=== PATIENT | male | born 1980 | race Caucasian/White ===

== ENCOUNTER 2019-06-11 10:24 | Emergency (ER) | payer SELFPAY ==
[2019-06-11 10:33] VITALS: BP 152/90; PULSE 98; RESP 20; TEMP 36.8; O2SAT 100
--- NOTE | 2019-06-11 10:41 | ED.NAVMDI ---
HPI - Nausea/Vomiting/Diarrhea General Chief complaint: Nausea/Vomiting/Diarrhea Stated complaint: Nausea, Vomiting, Body Aches Time Seen by Provider: 06/11/19 10:29 Source: patient Mode of arrival: ambulatory Limitations: no limitations and clinical condition History of Present Illness HPI Narrative: Patient is a 39-year-old male who presents with nausea, generalized body aches, lethargy and weakness x2 days. Patient has a past history of leukemia and is immunocompromised. Patient has not received IgG injection in 3 months due to insurance. Patient denies cough, sore throat or shortness of breath. MD elicited complaint: other (Generalized weakness and body aches) Related Data Home Medications Medication Instructions Recorded Confirmed lisinopril 2.5 mg PO DAILY 06/11/19 06/11/19 ropinirole 1 mg PO DAILY 06/11/19 06/11/19 Allergies Allergy/AdvReac Type Severity Reaction Status Date / Time No Known Allergies Allergy Verified 06/11/19 10:37 Review of Systems Review of Systems: Narrative: CONSTITUTIONAL: Denies fever, reports chills, body aches, weakness and lethargy x2 days EYES: Denies visual changes, redness, or discharge. ENT: Denies rhinorrhea, congestion, or otalgia. Reports mild sore throat CARDIOVASCULAR: Denies chest pain, palpitations, or edema. RESPIRATORY: Denies cough or dyspnea. GASTROINTESTINAL: Denies abdominal pain, vomiting, or diarrhea. Reports nausea GENITOURINARY: Denies dysuria or hematuria. SKIN: Denies rash or itching. MUSCULOSKELETAL: Denies back pain, joint pain, or myalgia. NEUROLOGIC: Denies headache, numbness, dizziness, or weakness. PSYCHIATRIC: Denies anxiety or depression. PMFSH Past Medical History Medical History (Updated 06/11/19 @ 11:42 by HERMES Galaviz) Immunocompromised patient Leukemia Migraines Social History Social History (Updated 06/11/19 @ 11:22 by HERMES Galaviz) Smoking status: Never smoker Alcohol intake: current Alcohol use details: Socially Substance use: never Living arrangements: with family Occupation/Education: occupation Gender identity (if verbalized by the patient): Male Exam Narrative: Exam Narrative: GENERAL: Well-appearing, well-nourished, and in no acute distress. HEAD: Normocephalic, atraumatic. EYES: EOMI. No redness or drainage. Conjunctiva are normal. ENT: Mucous membranes pink and moist. Nares clear. No rhinorrhea. TMs normal bilaterally. Throat normal. Uvula midline. NECK: AROM. Supple. No lymphadenopathy. CHEST: No respiratory distress. Clear to auscultation. HEART: Regular rate and rhythm. No murmur appreciated. Normal peripheral pulses. GI: Soft, nontender without rebound, or guarding. No distention. Bowel sounds normal in all quadrants. MUSCULOSKELETAL: No bony tenderness. EXTREMITIES: Normal range of motion. No edema. SKIN: Warm, dry, no rash. NEURO: No focal deficits. Alert and oriented x3. Gait steady. PSYCH: Normal affect. No signs of depression or anxiety. Course Vital Signs Vital signs: Vital Signs Temperature 36.8 C 06/11/19 10:33 Pulse Rate 98 06/11/19 10:33 Respiratory Rate 20 06/11/19 10:33 Blood Pressure 152/90 H 06/11/19 10:33 Pulse Oximetry 100 06/11/19 10:33 Temperature 36.8 C 06/11/19 10:33 Pulse Rate 98 06/11/19 10:33 Respiratory Rate 20 06/11/19 10:33 Blood Pressure 152/90 H 06/11/19 10:33 Pulse Oximetry 100 06/11/19 10:33 Reviewed. Patient has been instructed to follow-up with his PCP regarding his blood pressure. Influenza negative Transfer Transfered to: Other ([facility]) Transportation: Other (Personal transportation) Transfer rationale: Higher level care, further evaluation Transfer comments: Patient is to drive to [facility] in [place] for further evaluation. Patient is stable at this time. Vital signs stable at this time. MDM - Nausea/Vomiting/Diarrhea MDM Narrative Medical decision making narr
== END 2019-06-11 11:46 | disposition short-term general hospital (02) ==
PROVIDERS: Emergency Provider Nurse Practitioner; PCP Family Medicine
DX: R53.1 Weakness (principal); C95.91 Leukemia, unspecified, in remission; D84.9 Immunodeficiency, unspecified
CPT/HCPCS: 87804; 99212; G0463

== ENCOUNTER → 2021-03-19 03:25 | Outpatient (CLI) | payer OTHER, SELFPAY ==
[2021-03-24 22:32] LABS: SARS-CoV-2 RNA PCR Negative
== END ==
PROVIDERS: PCP Family Medicine; Visit Provider Family Medicine
DX: Z20.822 Contact with and (suspected) exposure to COVID-19 (principal)
CPT/HCPCS: C9803; U0003; U0005